=== PATIENT | male | born 1930 | race Caucasian/White ===

== ENCOUNTER 2017-01-28 14:39 | Emergency (ER) | payer MEDICARE ==
[~2017-01-28] VITALS: Ht 172.7 cm; Wt 70.3 kg
[2017-01-28 14:39] VITALS: BP 123/79
[2017-01-28] MEDS ORDERED: CAND32TA2 PO (15:05)
--- NOTE | 2017-01-28 15:09 | NUR ---
DR FUENTES AT BEDSIDE FOR EVAL.
== END 2017-01-28 16:12 | disposition home or self-care (01) ==
LOC: ER 14:41
DX: C02.9 Malignant neoplasm of tongue, unspecified (principal); G47.30 Sleep apnea, unspecified; I10 Essential (primary) hypertension
CPT/HCPCS: 99281; A4606; Z7502; Z7610

== ENCOUNTER 2018-10-03 16:44 | Emergency (ER) | payer BC, MEDICARE ==
[~2018-10-03] VITALS: Ht 175.3 cm; Wt 72.6 kg
[~2018-10-03 16:44] MED LIST: CAND32TA20 PO
--- NOTE | 2018-10-03 16:45 | NUR ---
BIB SELF W C/O DIZZINESS THIS MORNING. TO ER BED 2, HOOKED TO MONITOR, CHANGED TO GOWN, AWAITING MD HALL
--- NOTE | 2018-10-03 17:00 | NUR ---
DR HOYT AT BEDSIDE
[2018-10-03 18:11] LABS: CALCIUM, SERUM 8.6 mg/dL (8.5-10.1); CARBON DIOXIDE 28 mmol/L (21-32); CHLORIDE 105 mmol/L (98-107); CREATININE 1.2 mg/dL (0.6-1.3); GLUCOSE 93 mg/dL (74-106); POTASSIUM 4.3 mmol/L (3.5-5.1); SODIUM SERUM 140 mmol/L (136-145); UREA NITROGEN, BLOOD 18 mg/dL (7-18)
[2018-10-03 18:16] LABS: ALANINE AMINOTRANSFERASE 19 U/L (12-78); ALBUMIN 3.6 g/dL (3.4-5.0); ALKALINE PHOSPHATASE 70 U/L (46-116); ASPARTATE AMINOTRANSFERASE 19 U/L (15-37); BILIRUBIN,DIRECT 0.1 mg/dL (0.0-0.2); BILIRUBIN,TOTAL 0.5 mg/dL (0.2-1.0); TOTAL PROTEIN, SERUM 6.9 g/dL (6.4-8.2)
[2018-10-03 18:19] LABS: BASOPHILS % (AUTO) 0.5 % (0.0-2.0); EOSINOPHILS % (AUTO) 0.7 % (0.0-6.0); HEMATOCRIT 47 % (39-51); HEMOGLOBIN 15.3 g/dL (13.5-17.5); LYMPHOCYTES # (AUTO) 1.2 /CMM (0.8-4.8); LYMPHOCYTES % (AUTO) 15.4 % (20.0-44.0); MEAN CORPUSCULAR HGB CONC 32 g/dl (31.0-36.0); MEAN CORPUSCULAR VOLUME 99 fL (80-96); MONOCYTES # (AUTO) 0.5 /CMM (0.1-1.30); MONOCYTES % (AUTO) 6.3 % (2.0-12.0); NEUTROPHILS # (AUTO) 5.9 /CMM (1.8-8.9); NEUTROPHILS % (AUTO) 77.1 % (43.0-81.0); PLATELET COUNT (AUTO) 165 /CMM (150-450); RED BLOOD CELL COUNT(AUTO) 4.78 MIL/uL (4.5-6.0); WHITE BLOOD COUNT (AUTO) 7.6 K/uL (4.3-11.0)
[2018-10-03 19:11] VITALS: BP 153/99
--- NOTE | 2018-10-03 19:11 | NUR ---
IV removed. Catheter intact and site benign. Pressure and 4x4 applied to site. No bleeding noted.Patient discharged to home in stable condition. Written and verbal after care instructions given. Patient verbalizes understanding of instruction.
== END 2018-10-03 19:12 | disposition home or self-care (01) ==
LOC: ER 16:48
DX: R42 Dizziness and giddiness (principal); I10 Essential (primary) hypertension; G47.30 Sleep apnea, unspecified
CPT/HCPCS: 36415; 71045-TC; 80048-TC; 80076-TC; 84484-TC; 85025-TC; 85730-TC